=== PATIENT | female | born 1980 | race Caucasian/White ===

== ENCOUNTER → 2018-03-21 | Outpatient (CLI) | payer OTHER | LOC: CIMAGING 08:05 | PROVIDERS: ATTEND Family Medicine | DX: R22.1 Localized swelling, mass and lump, neck (principal) | CPT/HCPCS: 76536-PO ==

== ENCOUNTER → 2018-03-23 | Outpatient (CLI) | payer OTHER ==
[~2018-03-23] MED LIST: LIDOCAINE 1% 300 MG/30 ML SDV ONE
== END ==
LOC: FIMAGING 08:09
PROVIDERS: ATTEND Family Medicine
PROC: 0G9 Endocrine System, Drainage (ICD-10-PCS; principal; 2018-03-23)
DX: E04.1 Nontoxic single thyroid nodule (principal)